=== PATIENT | male | born 1975 | race Caucasian/White ===

== ENCOUNTER 2023-11-17 14:50 | Inpatient (IN) | payer OTHER ==
[2023-11-17 15:47] VITALS: BMI 29.9
[2023-11-17] MEDS ORDERED: MAG HYDROX/AL HYDROX/SIMETH 30 ML UNIT-DOSE CUP PO PRN (17:12)
[2023-11-17] MEDS ORDERED: guaiFENesin 600 MG TABLET.ER (FP) PO PRN (17:12)
[2023-11-17] MEDS ORDERED: DICYCLOMINE HCL 10 MG CAPSULE PO PRN (17:12)
[2023-11-17] MEDS ORDERED: NICOTINE POLACRILEX 2 MG LOZENGE BC PRN (17:12)
[2023-11-17] MEDS ORDERED: IBUPROFEN 400 MG TABLET (FP) PO PRN (17:12)
[2023-11-17] MEDS ORDERED: MAGNESIUM HYDROX 2400MG/30ML ORAL SUSPENSION 30 ML CUP PO PRN (17:12)
[2023-11-17] MEDS ORDERED: NICOTINE POLACRILEX 2 MG GUM BUC PRN (17:12)
[2023-11-17] MEDS ORDERED: BENZOCAINE/MENTHOL (CHLORASEPTIC ) LOZENGE MM PRN (17:12)
[2023-11-17] MEDS ORDERED: ONDANSETRON *ODT* 4 MG TABLET SL PRN (17:12)
[2023-11-17] MEDS ORDERED: ACETAMINOPHEN 325 MG TABLET (FP) PO PRN (17:12)
[2023-11-17] MEDS ORDERED: LOPERAMIDE HCL 2 MG CAPSULE PO PRN (17:12)
[2023-11-17] MEDS ORDERED: IBUPROFEN 600 MG TABLET (FP) PO PRN (17:12)
[2023-11-17] MEDS ORDERED: BISMUTH SUBSALICYLATE 524 MG/30 ML PO PRN (17:12)
[2023-11-17] MEDS ORDERED: BENZONATATE 200 MG CAPSULE PO PRN (17:12)
[2023-11-17] MEDS ORDERED: POLYETHYLENE GLYCOL (HEALTHYLAX) 3350 17 GM PACKET PO PRN (17:12)
[2023-11-17] MEDS: MELATONIN 5 MG TABLETS PO SCH (22:22)
[2023-11-17] MEDS: THIAMINE 100 MG TABLET PO SCH (22:23)
[2023-11-18] MEDS: PRENATAL VITAMINS W/ FOLIC ACID TABLET (FP) PO SCH (09:50)
[2023-11-18 10:21] LABS: HEMATOCRIT 43.4 % (35.4-49); HEMOGLOBIN 14.3 GM/dL (11.7-16.9); MCH 29.2 pg (25.7-33.7); MEAN CELL VOLUME 88.3 fl (80-96); MEAN PLT VOLUME 7.6 fl (7.5-11.1); PLATELET COUNT 246 10^3/uL (134-434); RBC 4.91 M/mm3 (4.00-5.60); WHITE BLOOD COUNT 5.1 K/mm3 (4.0-10.0)
[2023-11-18 10:36] LABS: CHLORIDE 107 mmol/L (98-107); POTASSIUM 4.2 mmol/L (3.5-5.1); SODIUM 139 mmol/L (136-145)
[2023-11-18] MEDS: PNEUMOC 20-VAL CONJ-DIP CRM/PF 0.5 ML SYRINGE IM ONE (10:59)
[2023-11-18 11:05] LABS: ALBUMIN 3.2 g/dl (3.4-5.0); ANION GAP 8 mmol/L (4-13); CALCIUM 8.9 mg/dL (8.5-10.1); CO2 25 mmol/L (21-32); GLUCOSE,RANDOM 122 mg/dL (74-106)
[2023-11-18 11:06] LABS: BLOOD UREA NITROGEN 16.6 mg/dL (7-18)
[2023-11-18 11:08] LABS: SGOT/AST 16 U/L (15-37); SGPT/ALT 31 U/L (13-61)
[2023-11-18 11:09] LABS: CREATININE 0.7 mg/dL (0.55-1.3)
[2023-11-18 11:10] LABS: BILIRUBIN,TOTAL 0.3 mg/dL (0.2-1); TOT PROT 6.2 g/dl (6.4-8.2)
[2023-11-18 11:11] LABS: ALK PHOS 87 U/L (45-117)
[2023-11-18] MEDS: METHOCARBAMOL 500 MG TABLET PO PRN (21:55)
[2023-11-18] MEDS: hydrOXYzine PAMOATE 25 MG CAPSULE (FP) PO PRN (21:56)
[2023-11-19 06:21] VITALS: RESP 18; TEMP 98.4
[2023-11-19 08:41] VITALS: BP 116/68; PULSE 79
== END 2023-11-19 11:02 | disposition home or self-care (01) | DRG 775 ==
LOC: YASAS 14:50 → Y6N 17:49
PROVIDERS: ADMIT Allergy & Immunology; ATTEND Surgery
PROC: HZ2ZZZZ Detoxification Services for Substance Abuse Treatment (ICD-10-PCS; principal; 2023-11-17)
DX: F10.20 Alcohol dependence, uncomplicated (principal); F17.213 Nicotine dependence, cigarettes, with withdrawal; E78.5 Hyperlipidemia, unspecified
CPT/HCPCS: 36415; 80053; 80305; 80307; 85027; 86780; 90677; 93005; 93010; G0009